=== PATIENT | male | born 1995 | race American Indian/Alaskan Native ===

== ENCOUNTER 2019-04-18 05:59 | Emergency (ER) | payer SELFPAY ==
[2019-04-18] MEDS ORDERED: KETALAR IV ONE (06:28)
--- NOTE | 2019-04-18 06:30 | Emergency Department Report ---
ED Upper Extremity Inj HPI - General Chief Complaint: Extremity Injury, Upper Stated Complaint: LEFT SHOULDER DISLOCATION Time Seen by Provider: 04/18/19 06:10 Source: patient Mode of arrival: Ambulatory Limitations: No Limitations - History of Present Illness Initial Comments: Patient is a 23-year-old male presents emergency room for shoulder pain and possible shoulder dislocation. Patient states he had a shoulder dislocation approximately 20-25 times. Patient states the pain is 10 out of 10. Patient extraocular patient states he is getting out of bed this morning at 6 AM for work and his shoulder slipped out of place. The patient states the pain is not radiating. Patient states the pain is better with rest and worse with movement. MD Complaint: Injury to:: left -: Sudden Other Extremity Injury: Shoulder: Left Other Injuries: none Handedness: right Place: home Severity scale (0 -10): 10 Improves With: immobilization, rest Worsens With: movement of extremity Context: other Associated Symptoms: heard/felt popping sensat. denies: weakness, numbness, neck pain, suspects foreign body, nausea/vomiting Treatments Prior to Arrival: cold therapy - Related Data Home Medications Medication Instructions Recorded Confirmed Last Taken No Known Home Medications [No 04/18/19 04/18/19 Unknown Reported Home Medications] Allergies Allergy/AdvReac Type Severity Reaction Status Date / Time No Known Allergies Allergy Verified 04/18/19 06:32 ED Review of Systems ROS: Stated complaint: LEFT SHOULDER DISLOCATION Other details as noted in HPI Constitutional: denies: chills, fever Eyes: denies: eye pain, eye discharge, vision change ENT: denies: ear pain, throat pain Respiratory: denies: cough, shortness of breath, wheezing Cardiovascular: denies: chest pain, palpitations Endocrine: no symptoms reported Gastrointestinal: denies: abdominal pain, nausea, diarrhea Genitourinary: denies: urgency, dysuria Musculoskeletal: denies: back pain, joint swelling, arthralgia Skin: denies: rash, lesions Neurological: denies: headache, weakness, paresthesias Psychiatric: denies: anxiety, depression Hematological/Lymphatic: denies: easy bleeding, easy bruising ED Past Medical Hx - Past Medical History Previous Medical History?: Yes Additional medical history: Dislocated shoulder - Surgical History Past Surgical History?: No - Family History Family history: no significant - Social History Smoking Status: Never Smoker Substance Use Type: Alcohol - Medications Home Medications: Home Medications Medication Instructions Recorded Confirmed Last Taken Type No Known Home Medications [No 04/18/19 04/18/19 Unknown History Reported Home Medications] ED Physical Exam - General Limitations: No Limitations General appearance: alert, in no apparent distress - Head Head exam: Present: atraumatic, normocephalic - Eye Eye exam: Present: normal appearance - ENT ENT exam: Present: mucous membranes moist - Neck Neck exam: Present: normal inspection - Respiratory Respiratory exam: Present: normal lung sounds bilaterally. Absent: respiratory distress, wheezes, rales - Cardiovascular Cardiovascular Exam: Present: regular rate, normal rhythm. Absent: systolic murmur, diastolic murmur, rubs, gallop - GI/Abdominal GI/Abdominal exam: Present: soft, normal bowel sounds. Absent: distended, tenderness, guarding - Rectal Rectal exam: Present: deferred - Extremities Exam Extremities exam: Present: normal inspection (obvious dislocation of the left shoulder), full ROM (except for left shoulder), tenderness (left shoulder) - Back Exam Back exam: Present: normal inspection - Neurological Exam Neurological exam: Present: alert, oriented X3 - Psychiatric Psychiatric exam: Present: normal affect, normal mood - Skin Skin exam: Present: warm, dry, intact, normal color. Absent: rash ED Course Vital Signs 04/18/19 04/18/19 04/18/19 06:03 06:56 07:00 Temperature 98.0 F Pulse Rate 84 Pulse Rate [ Intra-Procedure ] Pulse Rate [ Post-Procedure] Pulse Rate [Pre 87 -Procedure] Respiratory 18 18 Rate Respiratory Rate [Intra- Procedure] Respiratory Rate [Post- Procedure] Respiratory 24 Rate [Pre- Procedure] Blood Pressure 120/84 Blood Pressure [Intra- Procedure] Blood Pressure [Post-Procedure ] Blood Pressure 126/93 [Pre-Procedure] Blood Pressure [Right] O2 Sat by Pulse 98 Oximetry O2 Sat by Pulse Oximetry [ Intra-Procedure ] O2 Sat by Pulse Oximetry [Post -Procedure] O2 Sat by Pulse 100 Oximetry [Pre- Procedure] 04/18/19 04/18/19 04/18/19 07:07 07:13 07:18 Temperature Pulse Rate Pulse Rate [ 102 H 140 H 115 H Intra-Procedure ] Pulse Rate [ Post-Procedure] Pulse Rate [Pre -Procedure] Respiratory Rate Respiratory 16 16 Rate [Intra- Procedure] Respiratory Rate [Post- Procedure] Respiratory Rate [Pre- Procedure] Blood Pressure Blood Pressure 154/98 159/99 175/104 [Intra- Procedure] Blood Pressure [Post-Procedure ] Blood Pressure [Pre-Procedure] Blood Pressure [Right] O2 Sat by Pulse Oximetry O2 Sat by Pulse 100 100 100 Oximetry [ Intra-Procedure ] O2 Sat by Pulse Oximetry [Post -Procedure] O2 Sat by Pulse Oximetry [Pre- Procedure] 04/18/19 04/18/19 04/18/19 07:23 07:35 07:50 Temperature Pulse Rate 125 H Pulse Rate [ Intra-Procedure ] Pulse Rate [ 125 H 73 70 Post-Procedure] Pulse Rate [Pre -Procedure] Respiratory 20 Rate Respiratory Rate [Intra- Procedure] Respiratory 16 18 15 Rate [Post- Procedure] Respiratory Rate [Pre- Procedure] Blood Pressure Blood Pressure [Intra- Procedure] Blood Pressure 167/111 150/117 142/98 [Post-Procedure ] Blood Pressure [Pre-Procedure] Blood Pressure 167/111 [Right] O2 Sat by Pulse 99 Oximetry O2 Sat by Pulse Oximetry [ Intra-Procedure ] O2 Sat by Pulse 99 99 98 Oximetry [Post -Procedure] O2 Sat by Pulse Oximetry [Pre- Procedure] 04/18/19 04/18/19 08:05 08:20 Temperature Pulse Rate Pulse Rate [ Intra-Procedure ] Pulse Rate [ 65 78 Post-Procedure] Pulse Rate [Pre -Procedure] Respiratory Rate Respiratory Rate [Intra- Procedure] Respiratory 16 15 Rate [Post- Procedure] Respiratory Rate [Pre- Procedure] Blood Pressure Blood Pressure [Intra- Procedure] Blood Pressure 139/96 140/97 [Post-Procedure ] Blood Pressure [Pre-Procedure] Blood Pressure [Right] O2 Sat by Pulse Oximetry O2 Sat by Pulse Oximetry [ Intra-Procedure ] O2 Sat by Pulse 99 99 Oximetry [Post -Procedure] O2 Sat by Pulse Oximetry [Pre- Procedure] - Reevaluation(s) Reevaluation #1: Respiratory bedside and discussed procedure with patient. Patient agrees procedure and has signed consent. See procedure notes. 04/18/19 07:01 Procedure completed. She tolerated procedure without difficulties or problems. Vital signs stable. We will continue to monitor until patient is back to baseline. 04/18/19 07:13 Patient is awake and answering questions. Vital signs stable. 04/18/19 07:21 Chief complaint of nausea. Patient given Zofran. Patient is improving and stable. 04/18/19 08:00 Reevaluation #2: Patient back to baseline. patient denies n/v and shoulder pain. Patient resting comfortably in the room. Patient answering all questions appropriately. Patient is ambulatory. Discussed all results with patient. Patient stable for discharge. Patient will be discharged home. Patient agrees to plan of care. Discussed all discharge instructions the patient. Patient voiced understanding of discharge instructions. 04/18/19 08:33 - Moderate Sedation Indications: fracture/dislocation redu Presedation Evaluation: Left shoulder dislocation ASA Class: I Mallampati Airway Score: 1 Time of Last PO Intake: 04:00 Preparation: case monitor applied, pulse oximeter, capnometry used, supplemental O2 applied, suction/airway equipment at bedside, IV secured Ketamine Dose: 75 Complications: none Patient Tolerated Procedure: well - Orthopedic Joint Reduction Joint #1 Consent Obtained: verbal consent, written consent, emergent situation Time Out Performed: Yes Side: left Joint Reduction Location: shoulder Analgesia: moderate sedation Shoulder Technique Used (if applicable): external rotation Post-Reduction Neuro Exam: intact Post-Reduction Vascular Exam: intact Post Reduction X-Ray Obtained: Yes Post Reduction X-Ray Results: reduced Splint Applied: Yes Patient Tolerated Procedure: well ED Medical Decision Making - Radiology Data Radiology results: report reviewed, image reviewed interpreted by me: First left shoulder x-ray shows anterior dislocation Second shoulder x-ray shows successful reduction and shoulder and good placement - Medical Decision Making Patient is a 23-year-old male that presents emergency room with a recurrent left shoulder dislocation. Patient had moderate sedation and a successful reduction of the left shoulder. Patient monitored for adequate amount of time to patient to return to baseline. Patient was stable throughout procedure. See procedure note. Pre-and post x-rays done. - Differential Diagnosis shoulder dislocation. Left shoulder pain. Critical Care Time: Yes Critical care attestation.: If time is entered above; I have spent that time in minutes in the direct care of this critically ill patient, excluding procedure time. Critical Care Time: 45 minutes ED Disposition Clinical Impression: Shoulder dislocation Qualifiers: Encounter type: initial encounter Laterality: left Qualified Code(s): S43.005A - Unspecified dislocation of left shoulder joint, initial encounter Shoulder pain, acute Qualifiers: Laterality: left Qualified Code(s): M25.512 - Pain in left shoulder Disposition: DC-01 TO HOME OR SELFCARE Is pt being admited?: No Does the pt Need Aspirin: No Condition: Stable Instructions: Shoulder Dislocation (ED), Moderate Sedation (ED) Additional Instructions: Patient to follow-up with primary care in 2-3 days. Patient to follow-up with orthopedist in 2-3 days. Patient to keep arm in sling until cleared by orthopedics. Patient to take Tylenol or ibuprofen when necessary for pain. Patient to return to ER if condition worsens. Patient to increase water. Patient to rest.. Referrals: PAULINO VOGT MD [Primary Care Provider] - 2-3 Days SIMON GUZMÁN MD [Staff Physician] - 2-3 Days Forms: Accompanied Note, Work/School Release Form(ED) Time of Disposition: 08:34
[2019-04-18] MEDS ORDERED: NACL 0.9% 1000 ML 1,000 ML ONE (06:52)
[2019-04-18] MEDS ORDERED: NACL 0.9% 1000 ML 1,000 ML IV ONE (07:00)
--- NOTE | 2019-04-18 07:00 | XRay Report ---
PROCEDURE: XR SHOULDER 2+V LT TECHNIQUE: Left shoulder radiographs, three views. HISTORY: left shoulder pain COMPARISONS: None . FINDINGS: Fracture (s) and/or Dislocation(s): Anterior dislocation of glenohumeral joint. . Joint space(s): Normal . Soft tissues: Normal . Bone mineralization: Normal . Foreign bodies: None . IMPRESSION: There is anterior dislocation of the glenohumeral joint. . This document is electronically signed by Mat Verma MD., Apr 18 2019 06:58:27 AM ET
[2019-04-18] MEDS ORDERED: ZOFRAN IV ONE (07:52)
--- NOTE | 2019-04-18 07:53 | XRay Report ---
LEFT SHOULDER, ONE VIEW History: Reduction. Findings: The left shoulder dislocation has been reduced since earlier today at 0617 hours. No obvious fracture is identified on single view. Impression: Anatomic alignment of the left shoulder.
[2019-04-18] MEDS ORDERED: ZOFRAN ONE (07:54)
[2019-04-18 08:23] VITALS: BP 140/97
== END 2019-04-18 08:40 | disposition home or self-care (01) ==
LOC: ED 05:59
DX: S43.005A Unspecified dislocation of left shoulder joint, initial encounter (principal); X58.XXXA Exposure to other specified factors, initial encounter; Y93.89 Activity, other specified; Y92.89 Other specified places as the place of occurrence of the external cause; Y99.8 Other external cause status
CPT/HCPCS: 23650; 73020; 73030; 96374; 99283; J2405; J7030